=== PATIENT | male | born 1995 | race Caucasian/White ===

== ENCOUNTER 2020-06-21 09:25 | Emergency (ER) | payer BC ==
[~2020-06-21] VITALS: Ht 185.4 cm; Wt 94.3 kg
[2020-06-21 09:38] VITALS: BP 135/84; Ht 185.4 cm; Wt 94.3 kg
== END 2020-06-21 10:50 | disposition home or self-care (01) ==
LOC: ED 09:25
DX: R30.0 Dysuria (principal); R30.9 Painful micturition, unspecified
CPT/HCPCS: 87491; 87591